=== PATIENT | female | born 1985 | race Two or more races ===

== ENCOUNTER 2019-02-11 13:37 | Inpatient (IN) | payer OTHER ==
[2019-02-11 14:43] VITALS: BMI 18.4
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
[2019-02-11] MEDS ORDERED: ONDANSETRON *ODT* 4 MG TABLET SL PRN (17:56)
[2019-02-11] MEDS ORDERED: hydrOXYzine PAMOATE 25 MG CAPSULE (FP) PO PRN (17:56)
[2019-02-11] MEDS ORDERED: ACETAMINOPHEN 325 MG TABLET (FP) PO PRN (17:56)
[2019-02-11] MEDS ORDERED: MAG HYDROX/AL HYDROX/SIMETH 30 ML UNIT-DOSE CUP PO PRN (17:56)
[2019-02-11] MEDS ORDERED: MAGNESIUM HYDROX 2400MG/30ML ORAL SUSPENSION 30 ML CUP PO PRN (17:56)
[2019-02-11] MEDS ORDERED: NICOTINE POLACRILEX 2 MG GUM BUC PRN (17:56)
[2019-02-11] MEDS ORDERED: MAGNESIUM CITRATE 300 ML BOTTLE PO PRN (17:56)
[2019-02-11] MEDS ORDERED: BISMUTH SUBSALICYLATE 524 MG/30 ML UD PO PRN (17:56)
[2019-02-11] MEDS ORDERED: MENTHOL/PHENOL 1 EACH UD MM PRN (17:56)
[2019-02-11] MEDS ORDERED: cloNIDine HCL 0.1 MG TABLET PO PRN (17:59)
[2019-02-11] MEDS ORDERED: METHADONE HCL 10 MG TABLET (FOR DETOX USE ONLY) PO ONE ×2 (18:00→23:00)
[2019-02-11] MEDS: IBUPROFEN 400 MG TABLET (FP) PO PRN (19:03)
[2019-02-11] MEDS: THIAMINE HCL 100 MG TABLET (FP) PO SCH (22:52)
[2019-02-11] MEDS: MELATONIN 5 MG TABLETS PO PRN (22:54)
[2019-02-12] MEDS: IBUPROFEN 400 MG TABLET (FP) PO PRN ×3 (05:32→23:04)
[2019-02-12] MEDS: METHOCARBAMOL 500 MG TABLET PO PRN ×3 (09:20→23:05)
[2019-02-12] MEDS: PRENATAL VITAMINS W/ FOLIC ACID TABLET (FP) PO SCH (09:20)
[2019-02-12] MEDS: NICOTINE 21 MG/24 HOURS TOPICAL PATCH TD SCH (09:20)
[2019-02-12] MEDS: ACETAMINOPHEN 325 MG TABLET (FP) PO PRN (09:22)
[2019-02-12] MEDS ORDERED: METHADONE HCL 10 MG TABLET (FOR DETOX USE ONLY) PO ONE (10:00)
[2019-02-12 10:47] LABS: ALK PHOS 68 U/L (45-117); ANION GAP 7 MMOL/L (8-16); BILIRUBIN,TOTAL 0.4 mg/dL (0.2-1); BLOOD UREA NITROGEN 15 mg/dL (7-18); CHLORIDE 105 mmol/L (98-107); CO2 27 mmol/L (21-32); CREATININE 0.5 mg/dL (0.55-1.3); GLUCOSE,RANDOM 78 mg/dL (74-106); POTASSIUM 3.8 mmol/L (3.5-5.1); SGOT/AST 28 U/L (15-37); SGPT/ALT 28 U/L (13-61); SODIUM 139 mmol/L (136-145); TOT PROT 6.2 g/dl (6.4-8.2)
[2019-02-12 10:59] LABS: HEMATOCRIT 32.9 % (32.4-45.2); HEMOGLOBIN 10.6 GM/dL (10.7-15.3); MCH 26.9 pg (25.7-33.7); MCHC 32.1 g/dl (32.0-36.0); MEAN CELL VOLUME 83.8 fl (80-96); MEAN PLT VOLUME 8.7 fl (7.5-11.1); PLATELET COUNT 331 K/MM3 (134-434); RBC 3.93 M/mm3 (3.60-5.2); RDW 15.2 % (11.6-15.6); WHITE BLOOD COUNT 6.3 K/mm3 (4.0-10.0)
--- NOTE | 2019-02-12 11:58 | PN ---
BHS COWS - Scale Resting Pulse: 0= [place] 80 or Below Sweatin= Streaming Sweat Restless Observation: 1= Difficult to Sit Still Pupil Size: 1= Pupils >than Normal Bone or Joint Aches: 1= Mild Discomfort Runny Nose/ Eye Tearin= Nasal Congestion GI Upset > 30mins: 1= Stomach Cramp Tremor Observation of Outstretched Hands: 1= Tremor [place], Not Seen Yawning Observation: 0= None Anxiety or Irritability: 1=Feels Anxious/Irritable Goose Flesh Skin: 0=Smooth Skin COWS Score: 11 S Progress Note (SOAP) Subjective: body aches trouble sleep throughout the night restlessness Objective: 02/12/19 11:57 Vital Signs Temperature 98.5 F 02/12/19 09:21 Pulse Rate 76 02/12/19 11:00 Respiratory Rate 20 02/12/19 11:00 Blood Pressure 114/71 02/12/19 09:21 O2 Sat by Pulse Oximetry (%) Laboratory Last Values WBC 6.3 K/mm3 (4.0-10.0) 02/12/19 07:00 RBC 3.93 M/mm3 (3.60-5.2) 02/12/19 07:00 Hgb 10.6 GM/dL (10.7-15.3) L 02/12/19 07:00 Hct 32.9 % (32.4-45.2) 02/12/19 07:00 MCV 83.8 fl (80-96) 02/12/19 07:00 MCH 26.9 pg (25.7-33.7) 02/12/19 07:00 MCHC 32.1 g/dl (32.0-36.0) 02/12/19 07:00 RDW 15.2 % (11.6-15.6) 02/12/19 07:00 Plt Count 331 K/MM3 (134-434) 02/12/19 07:00 MPV 8.7 fl (7.5-11.1) 02/12/19 07:00 Sodium 139 mmol/L (136-145) 02/12/19 07:00 Potassium 3.8 mmol/L (3.5-5.1) 02/12/19 07:00 Chloride 105 mmol/L (98-107) 02/12/19 07:00 Carbon Dioxide 27 mmol/L (21-32) 02/12/19 07:00 Anion Gap 7 MMOL/L (8-16) L 02/12/19 07:00 BUN 15 mg/dL (7-18) 02/12/19 07:00 Creatinine 0.5 mg/dL (0.55-1.3) L 02/12/19 07:00 Creat Clearance w eGFR 143.91 (>60) 02/12/19 07:00 Random Glucose 78 mg/dL (74-106) 02/12/19 07:00 Calcium 8.0 mg/dL (8.5-10.1) L 02/12/19 07:00 Total Bilirubin 0.4 mg/dL (0.2-1) 02/12/19 07:00 AST 28 U/L (15-37) 02/12/19 07:00 ALT 28 U/L (13-61) 02/12/19 07:00 Alkaline Phosphatase 68 U/L (45-117) 02/12/19 07:00 Total Protein 6.2 g/dl (6.4-8.2) L 02/12/19 07:00 Albumin 3.0 g/dl (3.4-5.0) L 02/12/19 07:00 lab noted Assessment: 02/12/19 11:58 withdrawal sx Plan: continue detox
[2019-02-12] MEDS: GABAPENTIN 100 MG CAPSULE (FP) PO SCH ×2 (15:06→22:56)
[2019-02-12] MEDS: levETIRAcetam 500 MG TABLET (FP) PO SCH ×2 (15:06→22:57)
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
[2019-02-12] MEDS: clonazePAM 0.5 MG TABLET PO PRN ×2 (15:32→23:04)
[2019-02-12] MEDS: THIAMINE HCL 100 MG TABLET (FP) PO SCH (22:56)
[2019-02-12] MEDS: traZODone HCL 100 MG TABLET (FP) PO SCH (22:57)
[2019-02-13] MEDS: GABAPENTIN 100 MG CAPSULE (FP) PO SCH ×3 (06:19→22:42)
[2019-02-13] MEDS: IBUPROFEN 400 MG TABLET (FP) PO PRN ×3 (07:52→20:32)
[2019-02-13] MEDS: METHOCARBAMOL 500 MG TABLET PO PRN ×2 (09:14→16:55)
[2019-02-13] MEDS: clonazePAM 0.5 MG TABLET PO PRN ×2 (09:14→17:29)
[2019-02-13] MEDS ORDERED: METHADONE HCL 10 MG TABLET (FOR DETOX USE ONLY) PO ONE (10:00)
[2019-02-13] MEDS: PRENATAL VITAMINS W/ FOLIC ACID TABLET (FP) PO SCH (10:27)
[2019-02-13] MEDS: NICOTINE 21 MG/24 HOURS TOPICAL PATCH TD SCH (10:27)
[2019-02-13] MEDS: levETIRAcetam 500 MG TABLET (FP) PO SCH ×2 (10:30→22:42)
[2019-02-13] MEDS: ACETAMINOPHEN 325 MG TABLET (FP) PO PRN (17:29)
--- NOTE | 2019-02-13 18:40 | PN ---
BHS COWS - Scale Resting Pulse: 1= [place] 81-100 Sweatin= No chills or Flushing Restless Observation: 1= Difficult to Sit Still Pupil Size: 0= Normal to Room Light Bone or Joint Aches: 4=Acute Joint/Muscle Pain Runny Nose/ Eye Tearin= Nasal Congestion GI Upset > 30mins: 0= None Tremor Observation of Outstretched Hands: 0= None Yawning Observation: 1= 1-2x During Session Anxiety or Irritability: 2=Irritable/Anxious Goose Flesh Skin: 0=Smooth Skin COWS Score: 10 BHS Progress Note (SOAP) Subjective: Body Aches, Interrupted Sleep, Anxious, Fatigue. Objective: PATIENT A & O X 3, OBSERVED AMBULATING ON UNIT. IN NO ACUTE DISTRESS. 02/13/19 18:38 Vital Signs Temperature 98.2 F 02/13/19 13:00 Pulse Rate 89 02/13/19 13:00 Respiratory Rate 18 02/13/19 13:00 Blood Pressure 114/76 02/13/19 13:00 O2 Sat by Pulse Oximetry (%) Laboratory Tests 02/12/19 02/12/19 02/12/19 07:00 07:00 07:00 WBC 6.3 RBC 3.93 Hgb 10.6 L Hct 32.9 MCV 83.8 MCH 26.9 MCHC 32.1 RDW 15.2 Plt Count 331 MPV 8.7 Sodium 139 Potassium 3.8 Chloride 105 Carbon Dioxide 27 Anion Gap 7 L BUN 15 Creatinine 0.5 L Creat Clearance w eGFR 143.91 Random Glucose 78 Calcium 8.0 L Total Bilirubin 0.4 AST 28 ALT 28 Alkaline Phosphatase 68 Total Protein 6.2 L Albumin 3.0 L RPR Titer Nonreactive LABS NOTED. Assessment: 02/13/19 18:38 WITHDRAWAL SYMPTOMS. Plan: CONTINUE DETOX. OSCAL, 500 MG PO BID FOR HYPOCALCEMIA. PATIENT IS CURRENTLY RECEIVING DAILY MVI CONTAINING B VITAMINS AND IRON WHILE ADMITTED FOR DETOX.
[2019-02-13] MEDS: THIAMINE HCL 100 MG TABLET (FP) PO SCH (22:42)
[2019-02-13] MEDS: CALCIUM (OYSTER SHELL) 500 MG TABLET (FP) PO SCH (22:42)
[2019-02-13] MEDS: traZODone HCL 100 MG TABLET (FP) PO SCH (22:42)
[2019-02-13] MEDS: PANTOPRAZOLE 20 MG TABLET (FP) PO SCH (22:42)
[2019-02-14] MEDS: METHOCARBAMOL 500 MG TABLET PO PRN ×4 (03:20→22:19)
[2019-02-14] MEDS: clonazePAM 0.5 MG TABLET PO PRN ×3 (03:20→16:34)
[2019-02-14] MEDS: GABAPENTIN 100 MG CAPSULE (FP) PO SCH ×3 (05:47→22:13)
[2019-02-14] MEDS: IBUPROFEN 400 MG TABLET (FP) PO PRN ×3 (05:48→18:25)
[2019-02-14] MEDS ORDERED: METHADONE HCL 10 MG TABLET (FOR DETOX USE ONLY) PO ONE (10:00)
[2019-02-14] MEDS: PRENATAL VITAMINS W/ FOLIC ACID TABLET (FP) PO SCH (10:08)
[2019-02-14] MEDS: NICOTINE 21 MG/24 HOURS TOPICAL PATCH TD SCH (10:08)
[2019-02-14] MEDS: levETIRAcetam 500 MG TABLET (FP) PO SCH ×2 (10:08→22:13)
[2019-02-14] MEDS: CALCIUM (OYSTER SHELL) 500 MG TABLET (FP) PO SCH ×2 (10:08→22:13)
[2019-02-14] MEDS: PANTOPRAZOLE 20 MG TABLET (FP) PO SCH ×2 (10:08→22:13)
--- NOTE | 2019-02-14 10:22 | PN ---
BHS Progress Note (SOAP) Subjective: itchy legs pain sweats Nausea Objective: 02/14/19 10:20 A & O x 3 Anxious Vital Signs Temperature 97.5 F L 02/14/19 06:13 Pulse Rate 74 02/14/19 06:13 Respiratory Rate 18 02/14/19 06:13 Blood Pressure 96/62 02/14/19 06:13 O2 Sat by Pulse Oximetry (%) Assessment: 02/14/19 10:21 withdrawal sx Plan: Continue detox PRN pain meds and vistaril Increase hydration
[2019-02-14] MEDS: hydrOXYzine PAMOATE 50 MG CAPSULE (FP) PO PRN ×2 (12:34→18:26)
[2019-02-14] MEDS: ACETAMINOPHEN 325 MG TABLET (FP) PO PRN (16:34)
[2019-02-14] MEDS ORDERED: hydrOXYzine PAMOATE 50 MG CAPSULE (FP) PO ONE (21:00)
[2019-02-14] MEDS: traZODone HCL 100 MG TABLET (FP) PO SCH (22:13)
[2019-02-14] MEDS: THIAMINE HCL 100 MG TABLET (FP) PO SCH (22:13)
[2019-02-14] MEDS: MELATONIN 5 MG TABLETS PO PRN (22:18)
[2019-02-15] MEDS ORDERED: METHADONE HCL 5 MG TABLET (FOR DETOX USE ONLY) PO ONE (06:00)
[2019-02-15] MEDS: IBUPROFEN 400 MG TABLET (FP) PO PRN (06:28)
[2019-02-15] MEDS: METHOCARBAMOL 500 MG TABLET PO PRN (06:29)
[2019-02-15] MEDS: GABAPENTIN 100 MG CAPSULE (FP) PO SCH (06:29)
--- NOTE | 2019-02-15 08:56 | DS ---
[facility] Detox Discharge Summary Admission Date: 02/11/19 Discharge Date: 02/15/19 - History Present History: Opioid Dependence Additional Comments: 33 years old female admitted on 02/11/19 for opiate withdrawl stabilization completed detox regimen aftercare as per counselor arrangement patient wants to be discuarged the same day as per significant other on 6N - Physical Exam Results Vital Signs: Vital Signs Temperature 97 F L 02/15/19 06:39 Pulse Rate 76 02/15/19 06:39 Respiratory Rate 18 02/15/19 06:39 Blood Pressure 93/61 02/15/19 06:39 O2 Sat by Pulse Oximetry (%) Pertinent Admission Physical Exam Findings: opiate withdrawal sx Laboratory Last Values WBC 6.3 K/mm3 (4.0-10.0) 02/12/19 07:00 RBC 3.93 M/mm3 (3.60-5.2) 02/12/19 07:00 Hgb 10.6 GM/dL (10.7-15.3) L 02/12/19 07:00 Hct 32.9 % (32.4-45.2) 02/12/19 07:00 MCV 83.8 fl (80-96) 02/12/19 07:00 MCH 26.9 pg (25.7-33.7) 02/12/19 07:00 MCHC 32.1 g/dl (32.0-36.0) 02/12/19 07:00 RDW 15.2 % (11.6-15.6) 02/12/19 07:00 Plt Count 331 K/MM3 (134-434) 02/12/19 07:00 MPV 8.7 fl (7.5-11.1) 02/12/19 07:00 Sodium 139 mmol/L (136-145) 02/12/19 07:00 Potassium 3.8 mmol/L (3.5-5.1) 02/12/19 07:00 Chloride 105 mmol/L (98-107) 02/12/19 07:00 Carbon Dioxide 27 mmol/L (21-32) 02/12/19 07:00 Anion Gap 7 MMOL/L (8-16) L 02/12/19 07:00 BUN 15 mg/dL (7-18) 02/12/19 07:00 Creatinine 0.5 mg/dL (0.55-1.3) L 02/12/19 07:00 Creat Clearance w eGFR 143.91 (>60) 02/12/19 07:00 Random Glucose 78 mg/dL (74-106) 02/12/19 07:00 Calcium 8.0 mg/dL (8.5-10.1) L 02/12/19 07:00 Total Bilirubin 0.4 mg/dL (0.2-1) 02/12/19 07:00 AST 28 U/L (15-37) 02/12/19 07:00 ALT 28 U/L (13-61) 02/12/19 07:00 Alkaline Phosphatase 68 U/L (45-117) 02/12/19 07:00 Total Protein 6.2 g/dl (6.4-8.2) L 02/12/19 07:00 Albumin 3.0 g/dl (3.4-5.0) L 02/12/19 07:00 RPR Titer Nonreactive (NONREACTIVE) 02/12/19 07:00 lab noted - Treatment Hospital Course: Detox Protocol Followed, Detoxed Safely, Responded well, Discharged Condition Good, Rehab Referral Accepted Patient has Accepted a Rehab Referral to: encouarge medication assisted treatment program - Medication Discharge Medications: Ambulatory Orders Buprenorphine HCl [Subutex -] 8 mg SL TID 02/11/19 Gabapentin [Neurontin -] 300 mg PO TID 02/11/19 Ibuprofen [Motrin -] 600 mg PO TID 02/11/19 Oxycodone HCl [Oxycodone HCl ER] 30 mg PO TID 02/11/19 Tizanidine HCl [Zanaflex (Nf) -] 4 mg PO TID 02/11/19 levETIRAcetam [Keppra -] 500 mg PO BID #60 tablet 02/15/19 - Diagnosis (1) Uncomplicated opioid dependence Status: Acute (2) Substance induced mood disorder Status: Suspected (3) Seizure Status: Chronic - AMA Did Patient Leave Against Medical Advice: No
[2019-02-15 09:34] VITALS: BP 131/74; PULSE 79; TEMP 96.7
== END 2019-02-15 09:00 | disposition home or self-care (01) | DRG 773 ==
LOC: YASAS 13:37 → Y3N 18:13
PROVIDERS: ADMIT Surgery; ATTEND Surgery
PROC: HZ2ZZZZ Detoxification Services for Substance Abuse Treatment (ICD-10-PCS; principal; 2019-02-11)
DX: F11.23 Opioid dependence with withdrawal (principal); F14.20 Cocaine dependence, uncomplicated; F17.210 Nicotine dependence, cigarettes, uncomplicated; F19.24 Other psychoactive substance dependence with psychoactive substance-induced mood disorder; F19.282 Other psychoactive substance dependence with psychoactive substance-induced sleep disorder; G40.909 Epilepsy, unspecified, not intractable, without status epilepticus; J45.909 Unspecified asthma, uncomplicated; Z91.5 Personal history of self-harm
CPT/HCPCS: 36415; 80053; 85027; 86593